=== PATIENT | male | born 1980 | race Caucasian/White ===

== ENCOUNTER 2017-10-13 13:40 | Emergency (ER) | payer SELFPAY ==
[~2017-10-13] VITALS: Ht 157.5 cm; Wt 76.0 kg
[2017-10-13 14:07] VITALS: BP 108/58
== END 2017-10-13 15:34 | disposition home or self-care (01) ==
LOC: ER 13:40
DX: S46.811A Strain of other muscles, fascia and tendons at shoulder and upper arm level, right arm, initial encounter (principal); D17.9 Benign lipomatous neoplasm, unspecified; M25.521 Pain in right elbow; M54.2 Cervicalgia; F12.10 Cannabis abuse, uncomplicated; X58.XXXA Exposure to other specified factors, initial encounter; Y93.89 Activity, other specified; Y92.89 Other specified places as the place of occurrence of the external cause; Y99.8 Other external cause status
CPT/HCPCS: 99282